=== PATIENT | male | born 1930 | race Caucasian/White ===

== ENCOUNTER 2019-08-21 22:31 | Emergency (ER) | payer SELFPAY ==
[~2019-08-21] VITALS: Ht 180.3 cm; Wt 74.8 kg
[2019-08-22] MEDS ORDERED: LIDOCAINE 2% JELLY 11ml (GLYDO) UR ONE
[2019-08-22 01:31] LABS: Urine Bacteria MOD /hpf (None Seen); Urine Blood 3+ /uL (Negative); Urine Mucus FEW (None Seen); Urine Specific Gravity 1.021 (1.001-1.035); Urine WBC 532 /hpf (0 - 3); Urine WBC Clumps PRESENT /hpf (None Seen)
[2019-08-22 06:00] VITALS: BP 149/92
== END 2019-08-22 06:25 | disposition home or self-care (01) ==
LOC: EDBD 22:31 → ER 22:41
DX: N39.0 Urinary tract infection, site not specified (principal); F03.90 Unspecified dementia, unspecified severity, without behavioral disturbance, psychotic disturbance, mood disturbance, and anxiety; E11.9 Type 2 diabetes mellitus without complications
CPT/HCPCS: 81001